=== PATIENT | male | born 1980 | race Caucasian/White ===

== ENCOUNTER 2016-02-18 14:31 | Outpatient (CLI) | payer OTHER | END 2016-02-18 14:32 | disposition home or self-care (01) | DX: Z79.899 Other long term (current) drug therapy (principal); Z51.81 Encounter for therapeutic drug level monitoring; E55.9 Vitamin D deficiency, unspecified; D51.0 Vitamin B12 deficiency anemia due to intrinsic factor deficiency; D52.9 Folate deficiency anemia, unspecified; E61.2 Magnesium deficiency; E72.11 Homocystinuria; E53.8 Deficiency of other specified B group vitamins ==

== ENCOUNTER 2018-01-15 23:06 | Emergency (ER) | payer OTHER ==
[2018-01-15] MEDS ORDERED: IPRATROPIUM/ALBUTEROL 3 ML NEB INH STA (23:33)
[2018-01-15] MEDS ORDERED: DEXAMETHASONE 10 MG/ML VIAL PO STA (23:33)
--- NOTE | 2018-01-15 23:37 | ED Physician Documentation ---
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 He has had this happen to him once a year and last year he had pneumonia associated with this. He feels that he would improve with the use of some steroid and antibiotic. He has used an inhaler before he does not currently have one. Review of Systems Constitutional: reports: Fever, Chills, Myalgias, Fatigue Eyes: denies: Decreased vision Ears: denies: Ear pain Nose: reports: Congestion Throat: denies: Sore throat Cardiac: denies: Chest pain / pressure, Palpitations Respiratory: reports: Dyspnea, Cough, Wheezing GI: denies: Abdominal Pain, Nausea, Vomiting, Constipation, Diarrhea : denies: Dysuria, Frequency PD PAST MEDICAL HISTORY - Past Surgical History Past Surgical History: No - Present Medications Home Medications: Ambulatory Orders Medication Instructions Recorded Confirmed Albuterol Sulf [Ventolin Hfa 1 - 2 puffs INH Q4HR PRN #1 inhaler 01/16/18 Inhaler] Azithromycin [Zithromax] 0 mg PO DAILY #6 tablet 01/16/18 predniSONE [Prednisone] 10 mg PO DAILY #26 tablet 01/16/18 - Allergies Allergies/Adverse Reactions: Allergies Allergy/AdvReac Type Severity Reaction Status Date / Time No Known Drug Allergies Allergy Verified 08/27/13 20:38 - Social History Does the pt smoke?: No Smoking Status: Never smoker Does the pt drink ETOH?: No - Immunizations Immunizations are current?: No Immunizations: TDAP >10years/unknown PD ED PE NORMAL - Vitals Vital signs reviewed: Yes (tachy and hypertensive ) - General General: Alert and oriented X 3, Well developed/nourished - HEENT HEENT: Atraumatic, PERRL, EOMI, Other (right TM is flush wiht flatening of the landmarks. ) - Neck Neck: Supple, no meningeal sign, No bony TTP - Cardiac Cardiac: No murmur, Other (tachy ) - Respiratory Respiratory: Other (tachypneic at rest with scattered wheezes throughout ) - Abdomen Abdomen: Soft, Non tender - Back Back: No CVA TTP, No spinal TTP - Derm Derm: Normal color, Warm and dry, No rash - Extremities Extremities: No deformity, No edema - Neuro Neuro: Alert and oriented X 3, sport internship 2-12 intact, No motor deficit, No sensory deficit, Normal speech Eye Opening: Spontaneous Motor: Obeys Commands Verbal: Oriented GCS Score: 15 - Psych Psych: Normal mood, Normal affect Results - Vitals Vitals: Vital Signs - 24 hr 01/15/18 01/15/18 01/15/18 23:09 23:17 23:51 Temperature 36.9 C Heart Rate 124 H 100 103 H Respiratory 18 24 Rate Blood Pressure 210/110 H 201/110 H O2 Saturation 96 93 Oxygen O2 Source Room air - Rads (name of study) 2 veiw chest Radiology: Prelim report reviewed (Impression: Normal two-view chest radiography.), EMP read indepedently, See rad report PD MEDICAL DECISION MAKING - ED course Complexity details: reviewed results, re-evaluated patient, considered differential, d/w patient, d/w family ED course: 37-year-old male with history of asthma has developed acute exacerbation of his asthma with a right otitis media. He is coughing up some phlegm as well. He is short of breath when he arrives to the emergency department and has marked improvement with use of a DuoNeb treatment. He is administered dexamethasone 10 mg orally and we will send him home with a prescription for prednisone and azithromycin and albuterol. He is given a second albuterol treatment before leaving the emergency department. Departure - Departure Disposition: Home, Self Care Clinical Impression: Exacerbation of asthma Qualifiers: Asthma severity: mild Asthma persistence: intermittent Qualified Code(s): J45.21 - Mild intermittent asthma with (acute) exacerbation Otitis media Qualifiers: Otitis media type: suppurative Chronicity: acute Laterality: right Recurrence: not specified as recurrent Spontaneous tympanic membrane rupture: without spontaneous rupture Qualified Code(s): H66.001 - Acute suppurative otitis media without spontaneous rupture of ear drum, right ear Condition: Stable Instructions: ED Reactive Airway Disease, ED Otitis Media Acute Adult Follow-Up: Kailey Storm PA-C [Primary Care Provider] - Prescriptions: Albuterol Sulf [Ventolin Hfa Inhaler] 1 - 2 puffs INH Q4HR PRN #1 inhaler PRN Reason: Shortness Of Air/Wheezing Azithromycin [Zithromax] 0 mg PO DAILY #6 tablet predniSONE [Prednisone] 10 mg PO DAILY #26 tablet
--- NOTE | 2018-01-16 00:11 | XRAY Report ---
Reason: cough soa fever Procedure Date: 01/15/2018 Accession Number: [id number] / [id number] Procedure: XR - Chest 2 View X-Ray CPT Code: 96763 FULL RESULT: EXAM: CHEST RADIOGRAPHY EXAM DATE: 01/15/2018 11:53 PM. CLINICAL HISTORY: Cough and shortness of breath. Fever. COMPARISON: None. TECHNIQUE: 2 views. FINDINGS: Lungs/Pleura: No focal opacities evident. No pleural effusion. No pneumothorax. Normal volumes. Mediastinum: Heart and mediastinal contours are unremarkable. Other: None. IMPRESSION: Normal 2-view chest radiography. RADIA
[2018-01-16] MEDS ORDERED: ALBUTEROL NEB 2.5 MG/3 ML INH STA (01:07)
[2018-01-16 01:10] VITALS: BP 160/96
== END 2018-01-16 01:24 | disposition home or self-care (01) ==
LOC: ED 23:06
DX: J45.21 Mild intermittent asthma with (acute) exacerbation (principal); H66.001 Acute suppurative otitis media without spontaneous rupture of ear drum, right ear
CPT/HCPCS: 71046; 94640; 99283; 99284

== ENCOUNTER 2019-05-08 14:32 | Outpatient (CLI) | payer BC, OTHER | END 2019-05-08 14:33 | disposition home or self-care (01) | LOC: COV 14:32 | PROVIDERS: ATTEND Family Medicine | DX: R05 Cough (principal); R50.9 Fever, unspecified | CPT/HCPCS: 81599 ==

== ENCOUNTER 2021-05-20 05:04 | Emergency (ER) | payer BC, OTHER ==
[2021-05-20] MEDS ORDERED: SODIUM CHLORIDE 0.9% 1,000 ML IV STA (05:32)
--- NOTE | 2021-05-20 05:36 | ED Physician Documentation ---
PD HPI ABD PAIN - Stated complaint Stated Complaint: ADB PX/ NAUSEA - Chief complaint Chief Complaint: Abd Pain - History obtained from History obtained from: Patient - History of Present Illness Timing - duration: Hours (12) - Additional information Additional information: Patient with no previous abdominal surgeries presenting for evaluation of lower abdominal pain that he describes as a gas pain and 3 episodes of diarrhea that started approximately 12 hours ago. Patient has had nearly 100 pound intentional weight loss over the past year with Medication use and diet. Yesterday he went to [employer] and bought tofu and ate a few bites. He then went to crumbled cookie. He states he does not eat sugar very often but immediately after eating the cookie he started feeling gas pains in his abdomen. They come and go. Is unsure of anything that makes him feel better or worse. They are centrally located. He has had 3 looser stools with no blood. Some nausea but no emesis. No fever, chest pain, difficulty breathing, dysuria, hematuria. No back pain. No known sick contacts. Review of Systems Constitutional: denies: Fever Nose: denies: Congestion Cardiac: denies: Chest pain / pressure, Palpitations Respiratory: denies: Dyspnea, Cough GI: reports: Abdominal Pain, Nausea, Diarrhea. denies: Vomiting, Constipation, Bloody / black stool : denies: Dysuria Skin: denies: Rash Musculoskeletal: denies: Back pain Neurologic: denies: Syncope PD PAST MEDICAL HISTORY - Past Medical History Past Medical History: Yes Respiratory: None Neuro: None Endocrine/Autoimmune: None GI: None : None HEENT: None Psych: Anxiety Musculoskeletal: None Derm: None - Past Surgical History Past Surgical History: No - Present Medications Home Medications: Ambulatory Orders Medication Instructions Recorded Confirmed Albuterol Sulf [Ventolin Hfa 1 - 2 puffs INH Q4HR PRN #1 inhaler 01/16/18 Inhaler] Buprenorphine HCl/Naloxone HCl 1 tab SL DAILY 05/20/21 [Suboxone 8-2 mg Tab] Propranolol [Inderal] 80 mg PO DAILY 05/20/21 05/20/21 Topiramate [Topamax] 10 mg PO BID 05/20/21 05/20/21 busPIRone [Buspar] 15 mg PO BID 05/20/21 05/20/21 clonazePAM [KlonoPIN] 0.5 mg PO BID 05/20/21 05/20/21 - Allergies Allergies/Adverse Reactions: Allergies Allergy/AdvReac Type Severity Reaction Status Date / Time No Known Drug Allergies Allergy Verified 05/20/21 05:20 - Social History Does the pt smoke?: Yes Smoking Status: Current every day smoker Does the pt drink ETOH?: No Does the pt have substance abuse?: No - Immunizations Immunizations are current?: No Immunizations: TDAP >10years/unknown - POLST Patient has POLST: No PD ED PE NORMAL - General General: Alert and oriented X 3, No acute distress, Well developed/nourished - HEENT HEENT: Atraumatic, Moist mucous membranes - Neck Neck: Supple, no meningeal sign - Cardiac Cardiac: RRR, No murmur, Strong equal pulses - Respiratory Respiratory: No respiratory distress, Clear bilaterally - Abdomen Abdomen: Normal bowel sounds, Soft, Non tender, Non distended - Back Back: No CVA TTP - Derm Derm: Warm and dry - Extremities Extremities: No deformity, No edema - Neuro Neuro: Alert and oriented X 3, No motor deficit, Normal speech - Psych Psych: Normal mood, Normal affect Results - Vitals Vitals: Vital Signs - 24 hr 05/20/21 05/20/21 05/20/21 05:16 06:21 06:46 Temperature 36.3 C L 36.4 C L Heart Rate 79 78 75 Respiratory 16 13 13 Rate Blood Pressure 136/81 H 126/71 125/72 O2 Saturation 100 98 99 Oxygen O2 Source Room air - Labs Labs: Laboratory Tests 05/20/21 05/20/21 05:45 05:45 WBC 7.7 RBC 4.71 Hgb 14.7 Hct 41.0 L MCV 87.0 MCH 31.2 H MCHC 35.9 RDW 12.7 Plt Count 199 MPV 9.7 Neut # (Auto) 4.8 Lymph # (Auto) 1.9 [place] # (Auto) 0.5 Eos # (Auto) 0.4 Baso # (Auto) 0.0 Absolute Nucleated RBC 0.00 Nucleated RBC % 0.0 Sodium 135 Potassium 3.5 Chloride 102 Carbon Dioxide 25 Anion Gap 8.0 BUN 15 Creatinine 0.7 Estimated GFR (MDRD) 124 Glucose 107 H Calcium 9.3 Total Bilirubin 1.2 H AST 19 ALT 22 Alkaline Phosphatase 40 L Total Protein 6.8 Albumin 4.2 Globulin 2.6 Albumin/Globulin Ratio 1.6 Lipase 34 PD MEDICAL DECISION MAKING - ED course Complexity details: reviewed results, d/w patient ED course: 622 - Repeat abdominal exam remains benign with no tenderness on palpation; Labs reassuring. Patient is a former [employer]. Reviewed his work-up. He feels comfortable with no imaging today.He is aware of strict return precautions such as return of his pain, migration of his pain Or any new symptoms. Additionally do not feel he has ACS. EKG is reassuring and no cardiac symptoms. Departure - Departure Disposition: Home, Self Care Clinical Impression: Abdominal pain Qualifiers: Abdominal location: periumbilical Qualified Code(s): R10.33 - Periumbilical pain Diarrhea Qualifiers: Diarrhea type: unspecified type Qualified Code(s): R19.7 - Diarrhea, unspecified Condition: Stable Instructions: ED Abdominal Pain Unkn Cause Male Comments: Garrett - You were evaluated today for abdominal pain and diarrhea. Your vital signs are stable and your labs were overall very reassuring. As your pain has improved I do not think we need to obtain a CT scan or an ultrasound of your abdomen. However if your pain returns or you have new symptoms or pain elsewhere please return to the emergency department as you should have another evaluation and may need imaging at that time. Today please start with a bland Or clear liquid diet. Discharge Date/Time: 05/20/21 06:50
[2021-05-20 06:00] LABS: BASOPHILS % (AUTO) 0.5 %; EOSINOPHILS # (AUTO) 0.4 10^3/uL (0.0-0.7); EOSINOPHILS % (AUTO) 5.7 %; HGB - HEMOGLOBIN 14.7 g/dL (14.0-18.0); LYMPHOCYTES # (AUTO) 1.9 10^3/uL (1.5-3.5); LYMPHOCYTES % (AUTO) 24.8 %; MEAN CORPUSCULAR HEMOGLOBIN 31.2 pg (27.0-31.0); MEAN CORPUSCULAR HGB CONC 35.9 g/dL (32.0-36.0); MEAN PLATELET VOLUME 9.7 fL (7.4-11.4); MONOCYTES # (AUTO) 0.5 10^3/uL (0.0-1.0); MONOCYTES % (AUTO) 6.6 %; NEUTROPHILS # (AUTO) 4.8 10^3/uL (1.5-6.6); NEUTROPHILS % (AUTO) 62.1 %; PLT - PLATELET COUNT 199 10^3/uL (130-450); RED BLOOD COUNT 4.71 10^6/uL (4.70-6.10); RED CELL DISTRIBUTION WIDTH 12.7 % (12.0-15.0); WHITE BLOOD COUNT 7.7 x10^3/uL (4.8-10.8)
[2021-05-20 06:13] LABS: ALBUMIN 4.2 g/dL (3.2-5.5); ALBUMIN/GLOBULIN RATIO 1.6 (1.0-2.2); BILIRUBIN,TOTAL 1.2 mg/dL (0.2-1.0); CALCIUM 9.3 mg/dL (8.5-10.3); CREATININE 0.7 mg/dL (0.6-1.2); POTASSIUM 3.5 mmol/L (3.5-5.0); TOTAL PROTEIN 6.8 g/dL (6.7-8.2)
[2021-05-20 06:47] VITALS: BP 125/72
== END 2021-05-20 06:50 | disposition home or self-care (01) ==
LOC: ED 05:04 → EEVIPCON 05:04 → ED 06:50
DX: R10.33 Periumbilical pain (principal); R19.7 Diarrhea, unspecified; F17.200 Nicotine dependence, unspecified, uncomplicated
CPT/HCPCS: 36415; 80053; 83690; 85025; 93005; 99282; 99284

== ENCOUNTER 2021-12-08 11:39 | Emergency (ER) | payer OTHER ==
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
[2021-12-08 12:20] LABS: BASOPHILS % (AUTO) 0.2 %; EOSINOPHILS % (AUTO) 0.2 %; HCT - HEMATOCRIT 40.6 % (42.0-52.0); HGB - HEMOGLOBIN 14.6 g/dL (14.0-18.0); LYMPHOCYTES # (AUTO) 1.2 10^3/uL (1.5-3.5); LYMPHOCYTES % (AUTO) 9.1 %; MEAN CORPUSCULAR HEMOGLOBIN 32.2 pg (27.0-31.0); MEAN CORPUSCULAR VOLUME 89.4 fL (80.0-94.0); MEAN PLATELET VOLUME 9.5 fL (7.4-11.4); MONOCYTES # (AUTO) 0.7 10^3/uL (0.0-1.0); MONOCYTES % (AUTO) 5.3 %; NEUTROPHILS # (AUTO) 11.2 10^3/uL (1.5-6.6); NEUTROPHILS % (AUTO) 84.7 %; PLT - PLATELET COUNT 188 10^3/uL (130-450); RED BLOOD COUNT 4.54 10^6/uL (4.70-6.10); RED CELL DISTRIBUTION WIDTH 13.1 % (12.0-15.0); WHITE BLOOD COUNT 13.3 x10^3/uL (4.8-10.8)
[2021-12-08 12:25] LABS: PT - PROTHROMBIN TIME 11.8 secs (9.9-12.6)
[2021-12-08 12:30] LABS: ALBUMIN 4.5 g/dL (3.2-5.5); BILIRUBIN,TOTAL 0.8 mg/dL (0.2-1.0); CALCIUM 8.6 mg/dL (8.5-10.3); CREATININE 0.5 mg/dL (0.6-1.2); ETOH - ETHANOL 118.9 mg/dL; POTASSIUM 3.5 mmol/L (3.5-5.0); TOTAL PROTEIN 6.8 g/dL (6.7-8.2)
--- NOTE | 2021-12-08 13:07 | CT Report ---
PROCEDURE: PELVIS WO INDICATIONS: hip inj TECHNIQUE: Noncontrast 3 mm axial sections acquired through the bony pelvis, with coronal and sagittal reformatt ing. For radiation dose reduction, the following was used: automated exposure control, adjustment of mA and/or kV according to patient size. COMPARISON: None. FINDINGS: Image quality: Excellent. Bones: Acute comminuted and impacted fracture involving the subcapital region of right femoral neck is seen with superior displacement of proximal femoral shaft in relation to femoral head and up to 1. 3 cm overlapping of fracture site. Minimally displaced fracture is noted involving right anterior emilia tabulum extending to lateral portion of right superior pubic ramus. Comminuted fracture involving rig ht inferior pubic ramus midportion is also seen with minimal displacement at fracture site. There is a nondisplaced fracture involving left inferior pubic ramus midportion. Complex fracture involving la teral portion of left superior pubic ramus extending to anterior wall of left acetabulum is also seen . In addition, there is cortical irregularity involving right sacrum anterior cortex suggestive of mini davi displaced fracture. Nondisplaced fracture involving right transverse process of L5 vertebral ricardo dy is also seen. Soft tissues: There is no pelvic free fluid of free air. No abnormal bowel wall thickening. Bladder wall thickness is normal. No pelvic lymphadenopathy. There is soft tissue swelling adjacent to the ab ove-mentioned the right femoral neck and bilateral pubic rami fracture sites. No large drainable flui d collection or discrete soft tissue mass is seen. IMPRESSION: 1. Acute comminuted, impacted and displaced fracture involving subcapital region of right femoral nec k as above. 2. Minimally displaced fractures involving bilateral superior and inferior pubic rami extending to in volve anterior celis of bilateral acetabulum as above. 3. Suggestion of minimally displaced fracture involving right sacrum. 4. Nondisplaced fracture involving right transverse process of L5 vertebral body. Reviewed by: Lam Carrasco MD on 12/08/2021 1:05 PM PDT Approved by: Lam Carrasco MD on 12/08/2021 1:05 PM PDT Station ID: [id number]
--- NOTE | 2021-12-08 13:08 | XRAY Report ---
PROCEDURE: Hip w/Pelvis 2-3V RT INDICATIONS: fall from height,+etoh TECHNIQUE: AP pelvis with lateral view(s) of the right hip(s). COMPARISON: None. FINDINGS: Bones: Acute slightly comminuted fracture involving subcapital region of right femoral neck with supe rior migration of femoral shaft in relation to femoral head. Subtle irregularity involving right acet abulum and right inferior pubic ramus is also seen. No dislocation. No evidence of avascular necrosis of femoral head. No suspicious bony lesions. Soft tissues: The visualized bowel gas pattern is normal. No suspicious soft tissue calcifications. IMPRESSION: Displaced right femoral neck fracture and possible fractures involving right inferior pub ic ramus and lateral right superior pubic ramus/acetabulum. Please correlate with CT of pelvis lisain gs. Reviewed by: Lam Carrasco MD on 12/08/2021 1:07 PM PDT Approved by: Lam Carrasco MD on 12/08/2021 1:07 PM PDT Station ID: [id number]
[2021-12-08] MEDS ORDERED: THIAMINE INJ 100 MG, MAGNESIUM SULFATE 2 GM, MULTIVITAMIN 10 ML, FOLIC ACID INJ 1 MG in... IV ONE ×5 (13:13)
--- NOTE | 2021-12-08 13:15 | CT Report ---
PROCEDURE: HEAD WO INDICATIONS: fall from height,+etoh TECHNIQUE: Noncontrast 4.5 mm thick angled axial sections acquired from the foramen magnum to the vertex. For r adiation dose reduction, the following was used: automated exposure control, adjustment of mA and/or kV according to patient size. COMPARISON: None. FINDINGS: Small acute subdural hematoma overlying the right inferolateral parietal and posterior temporal lobes (axial images 1215 and coronal images 24-27. This measures 4 mm in maximum dimension. No associated significant mass effect. Additional is, there is questionable possible small cortical contusions or small volume subarachnoid hemorrhage in the anterior and lateral left temporal lobe, although this is favored to represent stre ak artifact. No evidence of other acute intracranial hemorrhage. No mass effect or midline shift. Ventricular system and basilar cisterns are patent. Starkey-white matter differentiation is maintained, without CT evidence of acute large territory infarct or vasogenic edema. No acute fracture. IMPRESSION: Small right parietotemporal convexity subdural hematoma without significant associated mass effect or Questionable small left anterolateral temporal contusions versus tiny volume subarachnoid hemorrhage this is favored to represent artifact although this is not entirely definite. Follow up in [facility] four hours or when clinically appropriate is recommended to help differentiate. Reviewed by: Niranjan Hale MD on 12/08/2021 1:14 PM PDT Approved by: Niranjan Hale MD on 12/08/2021 1:14 PM PDT Station ID: [id number]
--- NOTE | 2021-12-08 13:20 | CT Report ---
PROCEDURE: CERVICAL SPINE WO INDICATIONS: Trauma, fall from height,+etoh TECHNIQUE: Noncontrast 3 mm thick sections acquired from the skull base to the T4 level. Sagittal and coronal r eformats were then constructed. For radiation dose reduction, the following was used: automated exp osure control, adjustment of mA and/or kV according to patient size. COMPARISON: None. FINDINGS: Image quality: Excellent. Bones: No fracture, subluxation, or dislocation. Bilateral facet joint spaces are minimally widened a t C5-C6, C6-C7, and C7-T1 compared to the upper facet joints. Soft tissues: Prevertebral soft tissues are normal in thickness. No paravertebral hematomas. No ap ical pneumothoraces. IMPRESSION: No definite CT evidence of acute traumatic cervical spine injury. There is some subjective questionable widening of the lower facets from C5-C6 through C7-T1 when comp ared with the upper cervical facet joint spaces. This is favored to be positional although correlatio n for any point tenderness or pain with motion is requested to help exclude an underlying ligamentous injury more facet capsular strain. Is a right could be useful if there is clinical concern on the ba sis of physical exam findings. Reviewed by: Niranjan Hale MD on 12/08/2021 1:19 PM PDT Approved by: Niranjan Hale MD on 12/08/2021 1:19 PM PDT Station ID: [id number]
--- NOTE | 2021-12-08 13:30 | CT Report ---
PROCEDURE: THORACIC SPINE WO INDICATIONS: fall from height,+etoh TECHNIQUE: Noncontrast 3 mm thick sections acquired through the region of interest in the thoracic spine. Sagit tessie and coronal reformats were then constructed. For radiation dose reduction, the following was used : automated exposure control, adjustment of mA and/or kV according to patient size. COMPARISON: None. FINDINGS: Right L1 and L2 transverse process fractures, mildly displaced. Visualized portions of the posterior ribs are intact. No thoracic spine fracture. Thoracic vertebral body height and alignment are normal. Visualized portions of the lungs are clear. No pleural effusion or pneumothorax. IMPRESSION: Mildly displaced right L1 and L2 transverse process fractures. No thoracic spine fracture. Reviewed by: Niranjan Hale MD on 12/08/2021 1:29 PM PDT Approved by: Niranjan Hale MD on 12/08/2021 1:29 PM PDT Station ID: [id number]
--- NOTE | 2021-12-08 13:33 | CT Report ---
PROCEDURE: LUMBAR SPINE WO INDICATIONS: Trauma, fall from height TECHNIQUE: Noncontrast 3 mm thick sections acquired from the T12 level to the sacrum. Sagittal and coronal refo rmats were constructed. For radiation dose reduction, the following was used: automated exposure co ntrol, adjustment of mA and/or kV according to patient size. COMPARISON: None. FINDINGS: Mildly displaced right L1-L4 transverse process fractures. Vertebral body height and alignment are no rmal. Prevertebral soft tissues normal. IMPRESSION: Mildly displaced right L1-L4 transverse process fractures. Reviewed by: Niranjan Hale MD on 12/08/2021 1:31 PM PDT Approved by: Niranjan Hale MD on 12/08/2021 1:31 PM PDT Station ID: [id number]
[2021-12-08] MEDS ORDERED: LORazepam 2 MG/ML VIAL IVP STA (13:41)
[2021-12-08] MEDS ORDERED: DIATRIZOATE MEGLU/DIATRIZO SOD 30 ML BOTTLE PO ONE (14:14)
[2021-12-08 14:48] LABS: B. PARAPERTUSSIS- RESP PCR PAN NOT DETECTED; B. PERTUSSIS- RESP PCR PANEL NOT DETECTED; C. PNEUMONIAE- RESP PCR PANEL NOT DETECTED; CORONAVIRUS 229E-RESP PCR NOT DETECTED; CORONAVIRUS HKU1-RESP PCR NOT DETECTED; CORONAVIRUS NL63-RESP PCR NOT DETECTED; CORONAVIRUS OC43-RESP PCR NOT DETECTED; HUMAN METAPNEUMOVIRUS NOT DETECTED; INFLUENZA A- RESP PCR PANEL NOT DETECTED; INFLUENZA B - RESP PCR PANEL NOT DETECTED; M. PNEUMONIAE- RESP PCR PANEL NOT DETECTED; PARAINFLUENZA VIRUS 1 NOT DETECTED; PARAINFLUENZA VIRUS 2 NOT DETECTED; PARAINFLUENZA VIRUS 3 NOT DETECTED; PARAINFLUENZA VIRUS 4 NOT DETECTED; RHINOVIRUS/ENTEROVIRUS NOT DETECTED; RSV- RESP PCR PANEL NOT DETECTED; SARS-CoV-2 -RESP PCR PANEL NOT DETECTED
[2021-12-08 15:01] VITALS: BP 136/83
== END 2021-12-08 15:02 | disposition short-term general hospital (02) ==
LOC: EDUNIT# → ED 11:39
DX: F17.200 Nicotine dependence, unspecified, uncomplicated (principal); F10.129 Alcohol abuse with intoxication, unspecified; Y90.5 Blood alcohol level of 100-119 mg/100 ml; S06.5X0A Traumatic subdural hemorrhage without loss of consciousness, initial encounter; R74.01 Elevation of levels of liver transaminase levels; K70.10 Alcoholic hepatitis without ascites; S72.001A Fracture of unspecified part of neck of right femur, initial encounter for closed fracture; S32.401A Unspecified fracture of right acetabulum, initial encounter for closed fracture; S32.402A Unspecified fracture of left acetabulum, initial encounter for closed fracture; S32.10XA Unspecified fracture of sacrum, initial encounter for closed fracture; S32.502A Unspecified fracture of left pubis, initial encounter for closed fracture; S32.501A Unspecified fracture of right pubis, initial encounter for closed fracture; S32.019A Unspecified fracture of first lumbar vertebra, initial encounter for closed fracture; S32.029A Unspecified fracture of second lumbar vertebra, initial encounter for closed fracture; S32.039A Unspecified fracture of third lumbar vertebra, initial encounter for closed fracture; S32.049A Unspecified fracture of fourth lumbar vertebra, initial encounter for closed fracture; W17.89XA Other fall from one level to another, initial encounter; Y93.89 Activity, other specified; Z20.822 Contact with and (suspected) exposure to COVID-19
CPT/HCPCS: 36415; 70450; 72125; 72128; 72131; 72192; 73502; 80053; 80320; 85025; 85610; 87633; 96374; 96375; 99284; 99285; J2060; J3411

== ENCOUNTER 2021-12-08 15:05 | Outpatient (CLI) | payer SELFPAY | END 2021-12-08 23:59 | disposition short-term general hospital (02) | LOC: EMS 15:05 | PROVIDERS: ATTEND Emergency Medicine | DX: S06.5XAA Traumatic subdural hemorrhage with loss of consciousness status unknown, initial encounter (principal); S32.9XXA Fracture of unspecified parts of lumbosacral spine and pelvis, initial encounter for closed fracture; S72.001A Fracture of unspecified part of neck of right femur, initial encounter for closed fracture; W17.89XA Other fall from one level to another, initial encounter | CPT/HCPCS: A0425; A0428 ==

== ENCOUNTER → 2021-12-08 | Outpatient (CLI) | payer SELFPAY | END | disposition critical access hospital (66) | LOC: EMS 11:19 | DX: M25.551 Pain in right hip (principal); W19.XXXA Unspecified fall, initial encounter; Y92.009 Unspecified place in unspecified non-institutional (private) residence as the place of occurrence of the external cause | CPT/HCPCS: A0425; A0429 ==